=== PATIENT | female | born 1985 | race Hispanic/Latino ===

== ENCOUNTER 2019-04-27 05:42 | Inpatient (IN) | payer BC ==
[~2019-04-27] VITALS: Ht 175.3 cm; Wt 85.3 kg
[2019-04-27] MEDS ORDERED: LACTATED RINGERS 1000ML 1,000 ML IV PRN (05:56)
[2019-04-27] MEDS ORDERED: OXYTOCIN 10 USP UNITS/ML 20 UNIT in LACTATED RINGERS 1000ML 1,000 ML IV SCH (06:00)
[2019-04-27] MEDS ORDERED: ROPIVACAINE 0.2% 100ML VIAL 100 ML EP SCH (06:00)
[2019-04-27] MEDS ORDERED: EPHEDRINE SULFATE 50 MG/ML AMPULE IVP PRN (06:00)
[2019-04-27] MEDS ORDERED: BUTORPHANOL TARTRATE 2 MG/ML IVP PRN (06:00)
[2019-04-27] MEDS ORDERED: AMPICILLIN 2GM+NS 100ML 100 ML IV SCH (06:00)
[2019-04-27] MEDS ORDERED: NALOXONE HCL 0.4 MG/1 ML ML IV PRN (06:00)
[2019-04-27] MEDS ORDERED: LACTATED RINGERS 500 ML 500 ML IV PRN (06:00)
[2019-04-27 06:33] LABS: HEMATOCRIT 41.6 % (36-48); MEAN CORPUSCULAR HEMOGLOBIN 29.1 pg (27.0-33.0); MEAN CORPUSCULAR VOLUME 85.5 fL (79-99); PLATELET COUNT (AUTO) 220 K/uL (130-400); RED BLOOD CELL COUNT(AUTO) 4.86 MIL/uL (4.00-5.50); RED CELL DISTRIBUTION WIDTH 13.6 % (11.0-15.5); WHITE BLOOD COUNT (AUTO) 9.4 K/uL (4.8-10.8)
[2019-04-27] MEDS ORDERED: OXYTOCIN-LR 20 UNITS/1000 ML 1,000 ML IV ONE ×3 (06:58→12:33)
[2019-04-27 07:26] LABS: APPEARANCE,URINE Clear (CLEAR); BILIRUBIN,URINE Negative (NEGATIVE); COLOR,URINE Yellow (YELLOW); GLUCOSE, URINE (UA) Negative (NEGATIVE); KETONES,URINE Negative (NEGATIVE); LEUKOCYTE ESTERASE ,URINE Small (NEGATIVE); NITRATE,URINE Negative (NEGATIVE); OCCULT BLOOD,URINE Negative (NEGATIVE); PH,URINE 6.5 (5.0-8.0); PROTEIN,URINE Negative (NEGATIVE); UROBILINOGEN,URINE 0.2 mg/dL (0.2-1.0)
[2019-04-27 07:39] LABS: BACTERIA,URINE Rare /HPF (None Seen); RBC,URINE 0-1 /HPF (0-1); SQUAMOUS EPITHELIAL CELL,UR Few /HPF (0-2); WBC,URINE 0-1 /HPF (0-1)
[2019-04-27] MEDS ORDERED: AMPICILLIN 1GM+NS 50ML 50 ML IV SCH (10:00)
[2019-04-27] MEDS ORDERED: ACETAMINOPHEN 325 MG TAB PO PRN (12:00)
[2019-04-27] MEDS ORDERED: ACETAMINOPHEN-CODEINE 300/30MG TAB PO PRN (12:00)
[2019-04-27] MEDS ORDERED: DIPH,PERTUSS(ACELL),TET VAC/PF 0.5 ML VIAL IM PRN (12:00)
[2019-04-27] MEDS ORDERED: LANOLIN 30GM OINTMENT TP PRN (12:00)
[2019-04-27] MEDS ORDERED: MEASLES/MUMPS/RUBELLA VACCINE, LIVE 0.5 ML/VIAL SQ PRN (12:00)
[2019-04-27] MEDS ORDERED: WITCH HAZEL 1 PAD TP PRN (12:00)
[2019-04-27] MEDS ORDERED: BENZOCAINE/LANOLIN/ALOE VERA 60 ML AEROSOL TP PRN (12:00)
[2019-04-27] MEDS ORDERED: IBUPROFEN 600 MG TABLET PO PRN (12:00)
[2019-04-27 14:52] VITALS: BP 131/72
[2019-04-27 19:31] VITALS: BP 118/74
[2019-04-27] MEDS ORDERED: PNV#1COM14 PO (19:41)
[2019-04-27] MEDS: DOCUSATE SODIUM 100 MG CAP PO SCH (21:32)
[2019-04-27 23:08] VITALS: BP 132/71
[2019-04-28 03:29] VITALS: BP 124/78
[2019-04-28 07:32] VITALS: BP 124/74
--- NOTE | 2019-04-28 07:35 | NUR ---
PATIENT ASSESSED AND VERBALIZED HAVING VERY MILD CRAMPING AND INFORMED OF MOTRIN AVAILABLE FOR CRAMPING AND WILL GIVEN AFTER BREAKFAST. PATIENT INDICATED NOT HAVING MUCH PAIN AT THIS TIME ONLY WHEN . LOCHIA IS SMALL AND FUNDUS IS FIRM AT THE -1 FROM UMBILICUS.
[2019-04-28 08:12] LABS: HEPATITIS Bs ANTIGEN SCREEN P Negative (Negative)
[2019-04-28] MEDS: DOCUSATE SODIUM 100 MG CAP PO SCH (09:00)
[2019-04-28 11:49] VITALS: BP 132/76
--- NOTE | 2019-04-28 12:25 | NUR ---
PATIENT WAS TAKEN VIA W/C CARRYING BABY IN ARMS TO FAMILY VEHICLE AND WAS DISCHARGED TO SPOUSE IN STABLE CONDITION. PATIENT DENIES PAIN.
== END 2019-04-28 12:30 | disposition home or self-care (01) | DRG 807 ==
LOC: LDH 05:42 → WSH 14:50
PROVIDERS: ADMIT Obstetrics & Gynecology; ATTEND Obstetrics & Gynecology
PROC: 10E0XZZ Delivery of Products of Conception, External Approach (ICD-10-PCS; principal; 2019-04-27)
PROC: 3E0S3BZ Introduction of Anesthetic Agent into Epidural Space, Percutaneous Approach (ICD-10-PCS; 2019-04-27)
PROC: 00HU33Z Insertion of Infusion Device into Spinal Canal, Percutaneous Approach (ICD-10-PCS; 2019-04-27)
PROC: 3E0234Z Introduction of Serum, Toxoid and Vaccine into Muscle, Percutaneous Approach (ICD-10-PCS; 2019-04-27)
PROC: 3E0234Z Introduction of Serum, Toxoid and Vaccine into Muscle, Percutaneous Approach (ICD-10-PCS; 2019-04-27)
PROC: 10907ZC Drainage of Amniotic Fluid, Therapeutic from Products of Conception, Via Natural or Artificial Opening (ICD-10-PCS; 2019-04-27)
DX: O69.81X0 Labor and delivery complicated by cord around neck, without compression, not applicable or unspecified (principal); Z37.0 Single live birth; O99.824 Streptococcus B carrier state complicating childbirth; Z3A.38 38 weeks gestation of pregnancy; Z23 Encounter for immunization
CPT/HCPCS: 36415; 81001; 85027; 86592; 86850; 86900; 86901; 87340; A4314; G0378; J0290; J2590; J2795